=== PATIENT | male | born 2000 | race Caucasian/White ===

== ENCOUNTER 2023-08-03 12:33 | Emergency (ER) | payer MEDICAID, OTHER, SELFPAY ==
[~2023-08-03] VITALS: Ht 185.4 cm; Wt 131.8 kg
[2023-08-03] MEDS ORDERED: IBUP200T46 PO (13:31)
[2023-08-03] MEDS ORDERED: KETOROLAC 30 MG/ML 1ML VIAL IV ONE (15:30)
[2023-08-03] MEDS ORDERED: METR-265 PO (15:35)
[2023-08-03] MEDS ORDERED: LEVO1TAB40 PO (15:36)
[2023-08-03] MEDS ORDERED: MELO7.5T35 PO (15:37)
[2023-08-03 15:49] VITALS: TEMP 97.8
[2023-08-03] MEDS: KETOROLAC 30 MG/ML 1ML VIAL IM ONE (15:49)
[2023-08-03] MEDS: ACETAMINOPHEN 500 MG TAB PO ONE (15:49)
[2023-08-03 16:01] VITALS: BP 138/70; O2SAT 96
== END 2023-08-03 16:03 | disposition home or self-care (01) ==
LOC: M ED 12:33
DX: K03.81 Cracked tooth (principal); K02.9 Dental caries, unspecified; K08.89 Other specified disorders of teeth and supporting structures; Z79.1 Long term (current) use of non-steroidal anti-inflammatories (NSAID); Z79.2 Long term (current) use of antibiotics; Z79.899 Other long term (current) drug therapy
CPT/HCPCS: 96372; 99283; J1885

== ENCOUNTER 2023-08-19 11:28 | Emergency (ER) | payer MEDICAID ==
[~2023-08-19] VITALS: Ht 185.4 cm; Wt 143.0 kg
[2023-08-19 11:28] VITALS: BP 177/79; TEMP 98.5; O2SAT 98
[~2023-08-19 11:28] MED LIST: IBUP200T46 PO; LEVO1TAB40 PO; MELO7.5T35 PO; METR-265 PO
[2023-08-19] MEDS: PERCOCET 5MG/325MG TAB PO ONE (13:47)
[2023-08-19] MEDS ORDERED: PERC5TAB12 PO (13:48)
== END 2023-08-19 13:54 | disposition home or self-care (01) ==
LOC: M ED 11:28
DX: K08.89 Other specified disorders of teeth and supporting structures (principal); K03.81 Cracked tooth; Z79.1 Long term (current) use of non-steroidal anti-inflammatories (NSAID); Z79.899 Other long term (current) drug therapy

== ENCOUNTER → 2024-04-09 | Outpatient (REF) | payer OTHER, MEDICAID ==
[~2024-04-09] MED LIST changes: +PERC5TAB12 PO
== END ==
LOC: M LAB REF 16:29
PROVIDERS: ATTEND Physician Assistant
DX: J02.9 Acute pharyngitis, unspecified (principal)